=== PATIENT | male | born 1960 | race Caucasian/White ===

== ENCOUNTER 2024-01-23 07:57 | Emergency (ER) | payer OTHER ==
[~2024-01-23] VITALS: Ht 182.9 cm; Wt 83.1 kg
[2024-01-23] MEDS ORDERED: XARE20TA PO (08:10)
[2024-01-23] MEDS ORDERED: ATOR80TA59 PO (08:10)
[2024-01-23] MEDS ORDERED: METO1TAB7 PO (08:10)
[2024-01-23 09:18] LABS: BASO # 0.1 10^3/uL (0.0-0.2); BASO % 0.7 % (0.0-1.0); EOS # 0.1 10^3/uL (0.0-0.5); EOS % 1.1 % (0.0-3.0); HEMATOCRIT 44.7 % (42.0-52.0); HEMOGLOBIN 15.1 g/dl (13.5-17.5); LYMPH % 13.9 % (24.0-44.0); MEAN CORPUSCULAR HEMOGLOBIN 29.5 pg (27.0-33.0); MEAN CORPUSCULAR HGB CONC 33.8 g/dl (32.0-36.5); MEAN CORPUSCULAR VOLUME 87.5 fl (80.0-96.0); MONO # 0.6 10^3/uL (0.0-0.8); MONO % 8.2 % (2.0-8.0); NEUTROPHILS # 5.5 10^3/uL (1.5-8.5); NEUTROPHILS % 75.8 % (36.0-66.0); PLATELET COUNT, AUTOMATED 193 10^3/uL (150-450); RED BLOOD COUNT 5.11 10^6/uL (4.30-6.10); WHITE BLOOD COUNT 7.2 10^3/uL (4.0-10.0)
[2024-01-23] MEDS ORDERED: HOME MED LIST COMPLETE! XX SCH (09:25)
[2024-01-23 09:49] LABS: BLOOD UREA NITROGEN 12 MG/DL (9-23); CARBON DIOXIDE LEVEL 25 MMOL/L (20-31); CHLORIDE LEVEL 105 MMOL/L (98-107); CREATININE FOR GFR 0.74 MG/DL (0.70-1.30); GLOMERULAR FILTRATION RATE > 60.0 (>49); GLUCOSE, FASTING 107 MG/DL (74-106); MAGNESIUM LEVEL 1.6 MG/DL (1.8-2.4); POTASSIUM SERUM 4.1 MMOL/L (3.5-5.1); SODIUM LEVEL 137 MMOL/L (136-145)
[2024-01-23 09:51] LABS: FREE T4 1.17 NG/DL (0.89-1.76)
[2024-01-23 09:52] LABS: THYROID STIMULATING HORMONE 2.606 uIU/ML (0.55-4.78)
[2024-01-23] MEDS: MAG SULF 1GM/100ML (MAG RUN) 1 GM in IV 1 EA IV ONE (11:08)
[2024-01-23] MEDS ORDERED: FUROSEMIDE 40MG/4ML VIAL IV ONE (11:50)
[2024-01-23 12:15] VITALS: BP 123/79; O2SAT 96
[2024-01-23] MEDS ORDERED: SLOWTAB2 PO (12:20)
[2024-01-23 12:30] VITALS: TEMP 98.1
== END 2024-01-23 12:30 | disposition home or self-care (01) ==
LOC: M ED 07:57
DX: I47.29 Other ventricular tachycardia (principal); F41.1 Generalized anxiety disorder; E83.42 Hypomagnesemia; I48.91 Unspecified atrial fibrillation; I25.10 Atherosclerotic heart disease of native coronary artery without angina pectoris; I25.2 Old myocardial infarction; I10 Essential (primary) hypertension; E78.5 Hyperlipidemia, unspecified; Z98.61 Coronary angioplasty status; Z87.891 Personal history of nicotine dependence
CPT/HCPCS: 71045; 80048; 83735; 83880; 84439; 84443; 85025; 87486; 87581; 87633; 87798; 93005; 93041; 94760; 96365; 99285; J3475

== ENCOUNTER 2024-02-06 14:55 | Emergency (ER) | payer OTHER ==
[~2024-02-06] VITALS: Ht 182.9 cm; Wt 80.2 kg
[~2024-02-06 14:55] MED LIST: ATOR80TA59 PO; METO1TAB7 PO; SLOWTAB2 PO; XARE20TA PO
[2024-02-06 14:56] VITALS: TEMP 97.7
[2024-02-06 15:57] LABS: BASO % 0.9 % (0.0-1.0); EOS # 0.1 10^3/uL (0.0-0.5); EOS % 2.3 % (0.0-3.0); HEMATOCRIT 49.2 % (42.0-52.0); HEMOGLOBIN 16.4 g/dl (13.5-17.5); LYMPH # 1.2 10^3/uL (1.5-5.0); LYMPH % 33.7 % (24.0-44.0); MEAN CORPUSCULAR HGB CONC 33.3 g/dl (32.0-36.5); MEAN CORPUSCULAR VOLUME 87.1 fl (80.0-96.0); MONO # 0.7 10^3/uL (0.0-0.8); MONO % 19.2 % (2.0-8.0); NEUTROPHILS # 1.5 10^3/uL (1.5-8.5); NEUTROPHILS % 43.6 % (36.0-66.0); PLATELET COUNT, AUTOMATED 189 10^3/uL (150-450); RED BLOOD COUNT 5.65 10^6/uL (4.30-6.10); WHITE BLOOD COUNT 3.4 10^3/uL (4.0-10.0)
[2024-02-06 16:21] LABS: CK-MB VALUE MASS 1.2 NG/ML (<3.6); CPK CREATINE PHOSPHOKINASE 74 U/L (46-171); MB/CK RELATIVE INDEX 1.62 (< OR =4)
[2024-02-06 16:25] LABS: THYROID STIMULATING HORMONE 2.004 uIU/ML (0.55-4.78)
[2024-02-06 16:41] LABS: ALBUMIN 3.5 G/DL (3.2-5.2); ALKALINE PHOSPHATASE 149 U/L (46-116); ALT/SGPT 29 U/L (7.0-40); AST/SGOT 26 U/L (<34); BILIRUBIN,DIRECT 0.3 MG/DL (<0.4); BILIRUBIN,TOTAL 0.6 MG/DL (0.3-1.2); BLOOD UREA NITROGEN 17 MG/DL (9-23); CALCIUM LEVEL 9.2 MG/DL (8.3-10.6); CARBON DIOXIDE LEVEL 31 MMOL/L (20-31); CHLORIDE LEVEL 105 MMOL/L (98-107); CREATININE FOR GFR 0.81 MG/DL (0.70-1.30); GLOMERULAR FILTRATION RATE > 60.0 (>49); GLUCOSE, FASTING 96 MG/DL (74-106); POTASSIUM SERUM 3.8 MMOL/L (3.5-5.1); SODIUM LEVEL 141 MMOL/L (136-145); TOTAL PROTEIN 6.5 G/DL (5.7-8.2)
[2024-02-06 18:14] LABS: CK-MB VALUE MASS 1.2 NG/ML (<3.6)
[2024-02-06 18:16] LABS: MB/CK RELATIVE INDEX 1.87 (< OR =4)
[2024-02-06 19:06] LABS: CK-MB VALUE MASS 1.7 NG/ML (<3.6)
[2024-02-06 19:09] LABS: MB/CK RELATIVE INDEX 2.88 (< OR =4)
[2024-02-06] MEDS: METOPROLOL SUCC (TopROL XL) 50MG **XL** TAB PO ONE (19:55)
[2024-02-06 20:00] VITALS: BP 161/99; O2SAT 98
[2024-02-06] MEDS ORDERED: METO1TAB33 PO (20:01)
== END 2024-02-06 20:25 | disposition home or self-care (01) ==
LOC: M ED 14:55
DX: B34.8 Other viral infections of unspecified site (principal); I10 Essential (primary) hypertension; I49.1 Atrial premature depolarization; I25.2 Old myocardial infarction; E78.5 Hyperlipidemia, unspecified; Z86.79 Personal history of other diseases of the circulatory system; Z79.02 Long term (current) use of antithrombotics/antiplatelets; Z79.899 Other long term (current) drug therapy

== ENCOUNTER 2024-02-14 08:03 | Emergency (ER) | payer MEDICARE, OTHER ==
[~2024-02-14] VITALS: Ht 182.9 cm; Wt 80.0 kg
[~2024-02-14 08:03] MED LIST changes: +METO1TAB33 PO
[2024-02-14 09:00] LABS: BASO # 0.1 10^3/uL (0.0-0.2); BASO % 0.5 % (0.0-1.0); EOS # 0.1 10^3/uL (0.0-0.5); EOS % 0.7 % (0.0-3.0); HEMATOCRIT 50.1 % (42.0-52.0); HEMOGLOBIN 17.1 g/dl (13.5-17.5); LYMPH # 1.4 10^3/uL (1.5-5.0); LYMPH % 14.2 % (24.0-44.0); MEAN CORPUSCULAR HEMOGLOBIN 29.6 pg (27.0-33.0); MEAN CORPUSCULAR HGB CONC 34.1 g/dl (32.0-36.5); MEAN CORPUSCULAR VOLUME 86.7 fl (80.0-96.0); MONO # 0.6 10^3/uL (0.0-0.8); MONO % 5.8 % (2.0-8.0); NEUTROPHILS # 7.8 10^3/uL (1.5-8.5); NEUTROPHILS % 78.4 % (36.0-66.0); PLATELET COUNT, AUTOMATED 260 10^3/uL (150-450); RED BLOOD COUNT 5.78 10^6/uL (4.30-6.10); WHITE BLOOD COUNT 9.9 10^3/uL (4.0-10.0)
[2024-02-14 09:40] LABS: ALBUMIN 3.2 G/DL (3.2-5.2); ALKALINE PHOSPHATASE 149 U/L (46-116); ALT/SGPT 28 U/L (7.0-40); AST/SGOT 27 U/L (<34); BILIRUBIN,TOTAL 1.3 MG/DL (0.3-1.2); BLOOD UREA NITROGEN 15 MG/DL (9-23); CALCIUM LEVEL 9.8 MG/DL (8.3-10.6); CARBON DIOXIDE LEVEL 24 MMOL/L (20-31); CHLORIDE LEVEL 106 MMOL/L (98-107); GLOMERULAR FILTRATION RATE > 60.0 (>49); GLUCOSE, FASTING 147 MG/DL (74-106); MAGNESIUM LEVEL 1.9 MG/DL (1.8-2.4); POTASSIUM SERUM 3.9 MMOL/L (3.5-5.1); SODIUM LEVEL 136 MMOL/L (136-145); TOTAL PROTEIN 6.5 G/DL (5.7-8.2)
[2024-02-14] MEDS ORDERED: LOSA25TA13 PO (11:36)
[2024-02-14 11:48] VITALS: BP 129/93; O2SAT 97
[2024-02-14 11:57] VITALS: TEMP 97.8
== END 2024-02-14 12:09 | disposition home or self-care (01) ==
LOC: M ED 08:03
DX: I10 Essential (primary) hypertension (principal); R42 Dizziness and giddiness; I48.91 Unspecified atrial fibrillation; Z98.61 Coronary angioplasty status; Z79.01 Long term (current) use of anticoagulants; Z79.899 Other long term (current) drug therapy

== ENCOUNTER → 2024-02-28 | Outpatient (REF) | payer MEDICARE, OTHER ==
[~2024-02-28] MED LIST changes: +LOSA25TA13 PO
[2024-02-28 13:06] LABS: HEMOGLOBIN A1c 5.7 % (4.0-6.0)
[2024-02-28 13:21] LABS: CHOLESTEROL LEVEL 127 MG/DL (<200); CHOLESTEROL RISK RATIO 2.83 (<5); HDL CHOLESTEROL 44.8 MG/DL (>40); IRON (FE) 100 UG/DL (65-175); NON-HDL-C 82.2 MG/DL; PERCENT SATURATION 35.5 % (19.7-50.0); TOTAL IRON BINDING CAPACITY 282 UG/DL (250-425); TRIGLYCERIDES LEVEL 111 MG/DL (<150)
[2024-02-28 13:25] LABS: TOTAL 25(OH) VITAMIN D 32.3 NG/ML (20.0-100.0)
[2024-02-28 13:50] LABS: HIV 1&2 SCREEN NEGATIVE (NEGATIVE)
[2024-02-28 13:58] LABS: HEPATITIS C VIRUS ABY INDEX < 0.02 INDEX (<0.8)
== END ==
LOC: M LAB REF 11:49
PROVIDERS: ATTEND Nurse Practitioner Family
DX: E55.9 Vitamin D deficiency, unspecified (principal); E66.3 Overweight; Z11.9 Encounter for screening for infectious and parasitic diseases, unspecified; R20.8 Other disturbances of skin sensation; Z86.39 Personal history of other endocrine, nutritional and metabolic disease

== ENCOUNTER 2024-03-10 08:16 | Emergency (ER) | payer MEDICARE, OTHER ==
[~2024-03-10] VITALS: Ht 193 cm; Wt 80.6 kg
[2024-03-10 08:16] VITALS: TEMP 97.6
[2024-03-10 09:45] LABS: BASO # 0.1 10^3/uL (0.0-0.2); BASO % 0.7 % (0.0-1.0); EOS # 0.1 10^3/uL (0.0-0.5); HEMATOCRIT 47.8 % (42.0-52.0); HEMOGLOBIN 16.1 g/dl (13.5-17.5); LYMPH # 1.3 10^3/uL (1.5-5.0); LYMPH % 15.9 % (24.0-44.0); MEAN CORPUSCULAR HEMOGLOBIN 29.3 pg (27.0-33.0); MEAN CORPUSCULAR HGB CONC 33.7 g/dl (32.0-36.5); MEAN CORPUSCULAR VOLUME 86.9 fl (80.0-96.0); MONO # 0.6 10^3/uL (0.0-0.8); NEUTROPHILS # 6.1 10^3/uL (1.5-8.5); NEUTROPHILS % 75.2 % (36.0-66.0); PLATELET COUNT, AUTOMATED 196 10^3/uL (150-450); WHITE BLOOD COUNT 8.2 10^3/uL (4.0-10.0)
[2024-03-10 10:06] LABS: ALBUMIN 3.5 G/DL (3.2-5.2); ALKALINE PHOSPHATASE 120 U/L (46-116); ALT/SGPT 80 U/L (7.0-40); AST/SGOT 53 U/L (<34); BILIRUBIN,TOTAL 1.2 MG/DL (0.3-1.2); BLOOD UREA NITROGEN 15 MG/DL (9-23); CALCIUM LEVEL 9.3 MG/DL (8.3-10.6); CARBON DIOXIDE LEVEL 25 MMOL/L (20-31); CHLORIDE LEVEL 106 MMOL/L (98-107); CREATININE FOR GFR 0.82 MG/DL (0.70-1.30); GLOMERULAR FILTRATION RATE > 60.0 (>49); GLUCOSE, FASTING 113 MG/DL (74-106); POTASSIUM SERUM 4.3 MMOL/L (3.5-5.1); SODIUM LEVEL 139 MMOL/L (136-145); TOTAL PROTEIN 6.5 G/DL (5.7-8.2)
[2024-03-10 10:28] LABS: CK-MB VALUE MASS 1.2 NG/ML (<3.6)
[2024-03-10 10:31] LABS: CPK CREATINE PHOSPHOKINASE 67 U/L (46-171); MB/CK RELATIVE INDEX 1.79 (< OR =4)
[2024-03-10 13:39] LABS: CK-MB VALUE MASS 1.6 NG/ML (<3.6)
[2024-03-10 13:41] LABS: MB/CK RELATIVE INDEX 2.66 (< OR =4)
[2024-03-10] MEDS ORDERED: AMOX875T2 PO (14:12)
[2024-03-10 14:16] VITALS: O2SAT 97
[2024-03-10 14:21] VITALS: BP 141/95
== END 2024-03-10 14:36 | disposition home or self-care (01) ==
LOC: M ED 08:16
DX: I10 Essential (primary) hypertension (principal); I48.91 Unspecified atrial fibrillation; I49.3 Ventricular premature depolarization; H66.90 Otitis media, unspecified, unspecified ear; Z98.61 Coronary angioplasty status; I50.9 Heart failure, unspecified; I25.2 Old myocardial infarction; E78.00 Pure hypercholesterolemia, unspecified; Z79.02 Long term (current) use of antithrombotics/antiplatelets; Z79.899 Other long term (current) drug therapy

== ENCOUNTER → 2024-03-30 | Outpatient (REF) | payer MEDICARE, OTHER ==
[~2024-03-30] MED LIST changes: +AMOX875T2 PO
[2024-03-30 17:27] LABS: ALBUMIN 3.5 G/DL (3.2-5.2); BILIRUBIN,DIRECT 0.5 MG/DL (<0.4); BILIRUBIN,TOTAL 1.4 MG/DL (0.3-1.2); PERCENT SATURATION 48.2 % (19.7-50.0); TOTAL PROTEIN 6.1 G/DL (5.7-8.2)
== END ==
LOC: M LAB REF 16:43
PROVIDERS: ATTEND Nurse Practitioner Family
DX: R74.8 Abnormal levels of other serum enzymes (principal); R20.8 Other disturbances of skin sensation

== ENCOUNTER 2024-04-24 22:23 | Emergency (ER) | payer MEDICARE, OTHER ==
[~2024-04-24] VITALS: Ht 182.9 cm; Wt 76.5 kg
[2024-04-24 22:24] VITALS: BP 174/90; TEMP 98.7; O2SAT 97
[2024-04-24] MEDS ORDERED: TAMS1CAP17 PO (22:49)
[2024-04-24] MEDS ORDERED: TREL1AER PO (22:49)
== END 2024-04-25 02:34 | disposition home or self-care (01) ==
LOC: M ED 22:23
DX: R33.9 Retention of urine, unspecified (principal); N40.1 Benign prostatic hyperplasia with lower urinary tract symptoms; F17.200 Nicotine dependence, unspecified, uncomplicated; Z79.01 Long term (current) use of anticoagulants; Z79.899 Other long term (current) drug therapy

== ENCOUNTER 2024-04-27 07:22 | Emergency (ER) | payer MEDICARE, OTHER ==
[~2024-04-27] VITALS: Ht 182.9 cm; Wt 77.6 kg
[~2024-04-27 07:22] MED LIST changes: +TAMS1CAP17 PO; +TREL1AER PO
[2024-04-27 08:23] LABS: HEMATOCRIT 43.6 % (42.0-52.0); HEMOGLOBIN 14.8 g/dl (13.5-17.5); MEAN CORPUSCULAR HEMOGLOBIN 30.2 pg (27.0-33.0); MEAN CORPUSCULAR HGB CONC 33.9 g/dl (32.0-36.5); PLATELET COUNT, AUTOMATED 195 10^3/uL (150-450); WHITE BLOOD COUNT 8.1 10^3/uL (4.0-10.0)
[2024-04-27 08:50] LABS: BLOOD UREA NITROGEN 19 MG/DL (9-23); CALCIUM LEVEL 9.3 MG/DL (8.3-10.6); CARBON DIOXIDE LEVEL 25 MMOL/L (20-31); CHLORIDE LEVEL 108 MMOL/L (98-107); CREATININE FOR GFR 0.81 MG/DL (0.70-1.30); GLOMERULAR FILTRATION RATE > 60.0 (>49); GLUCOSE, FASTING 111 MG/DL (74-106); POTASSIUM SERUM 3.8 MMOL/L (3.5-5.1); SODIUM LEVEL 138 MMOL/L (136-145)
[2024-04-27 09:44] LABS: INR 1.26; PROTHROMBIN TIME 15.4 SECONDS (12.5-14.5)
[2024-04-27 11:32] VITALS: BP 133/91; TEMP 97.5; O2SAT 100
== END 2024-04-27 11:36 | disposition home or self-care (01) ==
LOC: M ED 07:22
DX: R31.9 Hematuria, unspecified (principal); Z96.0 Presence of urogenital implants; I48.91 Unspecified atrial fibrillation; I25.10 Atherosclerotic heart disease of native coronary artery without angina pectoris; I25.2 Old myocardial infarction; Z98.61 Coronary angioplasty status; I10 Essential (primary) hypertension; F17.200 Nicotine dependence, unspecified, uncomplicated; Z79.01 Long term (current) use of anticoagulants; Z79.899 Other long term (current) drug therapy

== ENCOUNTER 2024-05-02 17:01 | Emergency (ER) | payer MEDICARE, OTHER ==
[~2024-05-02] VITALS: Ht 182.9 cm; Wt 77.4 kg
[2024-05-02 20:32] VITALS: BP 129/77; TEMP 98.2; O2SAT 97
== END 2024-05-02 21:03 | disposition home or self-care (01) ==
LOC: M ED 17:01
DX: N40.1 Benign prostatic hyperplasia with lower urinary tract symptoms (principal); R33.9 Retention of urine, unspecified; Z96.0 Presence of urogenital implants; I25.10 Atherosclerotic heart disease of native coronary artery without angina pectoris; I10 Essential (primary) hypertension; J44.9 Chronic obstructive pulmonary disease, unspecified; Z79.01 Long term (current) use of anticoagulants; Z79.899 Other long term (current) drug therapy

== ENCOUNTER → 2024-05-11 | Outpatient (REF) | payer MEDICARE, MEDICAID | LOC: M LAB REF 17:30 | PROVIDERS: ATTEND Nurse Practitioner Family | DX: Z12.5 Encounter for screening for malignant neoplasm of prostate (principal) ==

== ENCOUNTER 2024-06-02 18:32 | Emergency (ER) | payer MEDICARE, MEDICAID ==
[~2024-06-02] VITALS: Ht 182.9 cm; Wt 78.5 kg
[2024-06-02] MEDS ORDERED: ALBU8.5H (18:41)
[2024-06-02 19:19] LABS: BASO # 0.1 10^3/uL (0.0-0.2); EOS # 0.2 10^3/uL (0.0-0.5); EOS % 2.9 % (0.0-3.0); HEMATOCRIT 42.2 % (42.0-52.0); HEMOGLOBIN 14.4 g/dl (13.5-17.5); LYMPH # 1.2 10^3/uL (1.5-5.0); LYMPH % 15.2 % (24.0-44.0); MEAN CORPUSCULAR HEMOGLOBIN 31.4 pg (27.0-33.0); MEAN CORPUSCULAR HGB CONC 34.1 g/dl (32.0-36.5); MEAN CORPUSCULAR VOLUME 91.9 fl (80.0-96.0); MONO # 0.7 10^3/uL (0.0-0.8); MONO % 8.9 % (2.0-8.0); NEUTROPHILS # 5.8 10^3/uL (1.5-8.5); NEUTROPHILS % 71.6 % (36.0-66.0); PLATELET COUNT, AUTOMATED 258 10^3/uL (150-450); RED BLOOD COUNT 4.59 10^6/uL (4.30-6.10)
[2024-06-02 19:59] LABS: CK-MB VALUE MASS < 1.0 NG/ML (<3.6)
[2024-06-02 20:02] LABS: BLOOD UREA NITROGEN 14 MG/DL (9-23); CARBON DIOXIDE LEVEL 27 MMOL/L (20-31); CHLORIDE LEVEL 105 MMOL/L (98-107); CPK CREATINE PHOSPHOKINASE 86 U/L (46-171); CREATININE FOR GFR 0.88 MG/DL (0.70-1.30); GLOMERULAR FILTRATION RATE > 60.0 (>49); GLUCOSE, FASTING 99 MG/DL (74-106); MB/CK RELATIVE INDEX 1.16 (< OR =4); POTASSIUM SERUM 4.1 MMOL/L (3.5-5.1); SODIUM LEVEL 138 MMOL/L (136-145)
[2024-06-02 21:00] VITALS: TEMP 97.8
[2024-06-02] MEDS ORDERED: ISOVUE-370 76% 100ML VIAL As Ordered ONE (21:45)
[2024-06-02] MEDS: ASPIRIN 81MG CHEW TABLET PO ONE (22:10)
[2024-06-02 22:59] LABS: MB/CK RELATIVE INDEX 1.19 (< OR =4)
[2024-06-02] MEDS: LIDOCAINE 2% 5ML JELLY UROJET TOP ONE (23:57)
[2024-06-03 00:11] VITALS: BP 169/58; O2SAT 98
== END 2024-06-03 00:18 | disposition home or self-care (01) ==
LOC: M ED 18:32
DX: R33.9 Retention of urine, unspecified (principal); R07.9 Chest pain, unspecified; I48.91 Unspecified atrial fibrillation; I25.2 Old myocardial infarction; I10 Essential (primary) hypertension; J44.9 Chronic obstructive pulmonary disease, unspecified; N40.1 Benign prostatic hyperplasia with lower urinary tract symptoms; Z87.891 Personal history of nicotine dependence; Z79.01 Long term (current) use of anticoagulants; Z79.899 Other long term (current) drug therapy
CPT/HCPCS: 51702; 71045; 71275; 80048; 82550; 82553; 84484; 85025; 93005; 93041; 94760; 99285; Q9967

== ENCOUNTER 2024-06-21 08:40 | Observation (INO) | payer MEDICARE, MEDICAID ==
[~2024-06-21] VITALS: Ht 188 cm; Wt 78.3 kg
[~2024-06-21 08:40] MED LIST changes: +ALBU8.5H INH
[2024-06-21] MEDS: TAMSULOSIN 0.4 MG CAP PO SCH (09:00)
[2024-06-21] MEDS ORDERED: LOSA50TA28 PO (09:04)
[2024-06-21] MEDS ORDERED: NITROGLYCERIN 0.3MG SUBL TAB SL PRN (09:20)
[2024-06-21 09:21] LABS: BASO # 0.1 10^3/uL (0.0-0.2); BASO % 1.1 % (0.0-1.0); EOS # 0.2 10^3/uL (0.0-0.5); EOS % 2.7 % (0.0-3.0); HEMATOCRIT 43.8 % (42.0-52.0); HEMOGLOBIN 14.7 g/dl (13.5-17.5); LYMPH # 1.1 10^3/uL (1.5-5.0); LYMPH % 14.8 % (24.0-44.0); MEAN CORPUSCULAR HEMOGLOBIN 30.9 pg (27.0-33.0); MEAN CORPUSCULAR HGB CONC 33.6 g/dl (32.0-36.5); MONO # 0.6 10^3/uL (0.0-0.8); NEUTROPHILS # 5.3 10^3/uL (1.5-8.5); PLATELET COUNT, AUTOMATED 249 10^3/uL (150-450); RED BLOOD COUNT 4.76 10^6/uL (4.30-6.10); WHITE BLOOD COUNT 7.3 10^3/uL (4.0-10.0)
[2024-06-21] MEDS: ASPIRIN 81MG CHEW TABLET PO ONE (09:25)
[2024-06-21 09:43] LABS: LIPASE 32 U/L (12-53)
[2024-06-21 09:46] LABS: ALBUMIN 3.4 G/DL (3.2-5.2); ALKALINE PHOSPHATASE 159 U/L (46-116); ALT/SGPT 25 U/L (7.0-40); AST/SGOT 20 U/L (<34); BILIRUBIN,DIRECT 0.4 MG/DL (<0.4); BLOOD UREA NITROGEN 15 MG/DL (9-23); CARBON DIOXIDE LEVEL 28 MMOL/L (20-31); CHLORIDE LEVEL 105 MMOL/L (98-107); CK-MB VALUE MASS < 1.0 NG/ML (<3.6); CREATININE FOR GFR 0.93 MG/DL (0.70-1.30); GLOMERULAR FILTRATION RATE > 60.0 (>49); GLUCOSE, FASTING 108 MG/DL (74-106); MAGNESIUM LEVEL 1.9 MG/DL (1.8-2.4); POTASSIUM SERUM 4.3 MMOL/L (3.5-5.1); SODIUM LEVEL 136 MMOL/L (136-145); TOTAL PROTEIN 6.7 G/DL (5.7-8.2)
[2024-06-21 09:47] LABS: CPK CREATINE PHOSPHOKINASE 72 U/L (46-171); FREE T4 1.21 NG/DL (0.89-1.76); MB/CK RELATIVE INDEX 1.38 (< OR =4)
[2024-06-21 10:38] LABS: CK-MB VALUE MASS < 1.0 NG/ML (<3.6)
[2024-06-21 10:40] LABS: CPK CREATINE PHOSPHOKINASE 64 U/L (46-171); MB/CK RELATIVE INDEX 1.56 (< OR =4)
[2024-06-21] MEDS ORDERED: HOME MED LIST COMPLETE! XX SCH (12:45)
[2024-06-21] MEDS ORDERED: IPRATROPIUM 0.02% SOLN 0.5MG 2.5ML NEB INH PRN (14:05)
[2024-06-21] MEDS ORDERED: NITROGLYCERIN 0.4MG SUBL TABLET SL PRN (14:05)
[2024-06-21] MEDS ORDERED: LEVALBUTEROL 1.25MG 0.5ML CONCENTRATE NEB INH PRN ×2 (14:05→15:33)
[2024-06-21] MEDS ORDERED: ALBUTEROL 90 MCG/ACT 8GM HFA INHALER INH PRN (14:05)
[2024-06-21] MEDS ORDERED: MAALOX 30 ML SUSP *UDC PO PRN (14:05)
[2024-06-21] MEDS ORDERED: ACETAMINOPHEN TAB 650MG DOSE (2X325MG) PO PRN (14:05)
[2024-06-21 17:12] VITALS: BP 138/91; TEMP 98.5; O2SAT 99
[2024-06-21] MEDS: RIVAROXABAN 20MG TAB (XARELTO) PO SCH (17:17)
[2024-06-21 19:59] VITALS: BP 119/77; TEMP 97.1; O2SAT 96
[2024-06-21] MEDS: DOCUSATE SODIUM 100MG CAPSULE PO SCH (20:03)
[2024-06-21] MEDS: METOPROLOL SUCC (TopROL XL) 50MG **XL** TAB PO SCH (20:03)
[2024-06-22] VITALS: BP 106/73; TEMP 97.3; O2SAT 96
[2024-06-22 06:17] LABS: HEMATOCRIT 40.9 % (42.0-52.0); HEMOGLOBIN 13.5 g/dl (13.5-17.5); MEAN CORPUSCULAR HEMOGLOBIN 30.1 pg (27.0-33.0); MEAN CORPUSCULAR VOLUME 91.1 fl (80.0-96.0); PLATELET COUNT, AUTOMATED 246 10^3/uL (150-450); RED BLOOD COUNT 4.49 10^6/uL (4.30-6.10); WHITE BLOOD COUNT 7.1 10^3/uL (4.0-10.0)
[2024-06-22 06:49] LABS: ALBUMIN 3.2 G/DL (3.2-5.2); ALKALINE PHOSPHATASE 150 U/L (46-116); ALT/SGPT 19 U/L (7.0-40); AST/SGOT 17 U/L (<34); BLOOD UREA NITROGEN 17 MG/DL (9-23); CALCIUM LEVEL 9.2 MG/DL (8.3-10.6); CARBON DIOXIDE LEVEL 27 MMOL/L (20-31); CHLORIDE LEVEL 106 MMOL/L (98-107); CHOLESTEROL LEVEL 124 MG/DL (<200); CREATININE FOR GFR 0.95 MG/DL (0.70-1.30); GLOMERULAR FILTRATION RATE > 60.0 (>49); GLUCOSE, FASTING 99 MG/DL (74-106); HDL CHOLESTEROL 35.4 MG/DL (>40); LDL CHOLESTEROL 76.2 MG/DL (<100); MAGNESIUM LEVEL 1.8 MG/DL (1.8-2.4); NON-HDL-C 88.6 MG/DL; POTASSIUM SERUM 4.3 MMOL/L (3.5-5.1); SODIUM LEVEL 137 MMOL/L (136-145); TOTAL PROTEIN 6.3 G/DL (5.7-8.2); TRIGLYCERIDES LEVEL 62 MG/DL (<150)
[2024-06-22 07:39] VITALS: BP 149/87; TEMP 97.2; O2SAT 96
[2024-06-22] MEDS: ATORVASTATIN 20 MG TAB PO SCH (08:50)
[2024-06-22 08:51] VITALS: BP 149/87
[2024-06-22] MEDS: LOSARTAN 50MG TABLET PO SCH (08:51)
[2024-06-22] MEDS: ISOSORBIDE MON. (IMDUR) 60MG XR TAB PO SCH (08:51)
[2024-06-22] MEDS ORDERED: ASPIRIN 81MG CHEW TABLET PO PRN (09:00)
[2024-06-22 11:34] VITALS: BP 84/58; TEMP 97.8; O2SAT 95
[2024-06-22 11:50] VITALS: BP 120/84
[2024-06-22] MEDS ORDERED: ISOS1TAB36 PO (12:20)
[2024-06-22] MEDS ORDERED: ASPI81CH8 PO (12:20)
[2024-06-22] MEDS ORDERED: LOSA50TA28 PO (12:20)
[2024-06-22] MEDS ORDERED: NITR4TASL SL (12:20)
== END 2024-06-22 13:57 | disposition home or self-care (01) ==
LOC: M ED 08:40 → M ED INP 14:05 → M PCU 16:57
PROVIDERS: ADMIT Family Medicine; ATTEND Family Medicine
DX: I20.89 Other forms of angina pectoris (principal); I48.91 Unspecified atrial fibrillation; N40.0 Benign prostatic hyperplasia without lower urinary tract symptoms; J44.9 Chronic obstructive pulmonary disease, unspecified; I10 Essential (primary) hypertension; E78.5 Hyperlipidemia, unspecified; Z79.899 Other long term (current) drug therapy; Z79.82 Long term (current) use of aspirin
CPT/HCPCS: 36415; 71045; 80048; 80053; 80061; 80076; 82550; 82553; 83690; 83735; 83880; 84439; 84443; 84484; 85025; 85027; 93005; 93041; 94760; 99285; G0378

== ENCOUNTER → 2024-06-26 | Outpatient (REF) | payer MEDICARE, MEDICAID ==
[~2024-06-26] MED LIST changes: +ASPI81CH8 PO; +ISOS1TAB36 PO; +LOSA50TA28 PO; +NITR4TASL SL
== END ==
LOC: M LAB REF 17:22
PROVIDERS: ATTEND Nurse Practitioner Family
DX: R97.20 Elevated prostate specific antigen [PSA] (principal)

== ENCOUNTER 2024-07-10 08:23 | Emergency (ER) | payer MEDICARE, MEDICAID ==
[~2024-07-10] VITALS: Ht 162.6 cm; Wt 76.7 kg
[2024-07-10 11:35] VITALS: BP 107/72; TEMP 97.7; O2SAT 97
== END 2024-07-10 11:44 | disposition home or self-care (01) ==
LOC: M ED 08:23
DX: K43.9 Ventral hernia without obstruction or gangrene (principal); K42.0 Umbilical hernia with obstruction, without gangrene; K40.30 Unilateral inguinal hernia, with obstruction, without gangrene, not specified as recurrent; K76.89 Other specified diseases of liver; N40.0 Benign prostatic hyperplasia without lower urinary tract symptoms; I48.91 Unspecified atrial fibrillation; I25.10 Atherosclerotic heart disease of native coronary artery without angina pectoris; I10 Essential (primary) hypertension; Z79.01 Long term (current) use of anticoagulants; Z79.899 Other long term (current) drug therapy

== ENCOUNTER → 2024-07-21 | Outpatient (REF) | payer MEDICARE, MEDICAID | LOC: M SMT PRO 12:25 | PROVIDERS: ATTEND Urology | DX: R97.20 Elevated prostate specific antigen [PSA] (principal); Z79.01 Long term (current) use of anticoagulants; Z79.51 Long term (current) use of inhaled steroids; Z79.899 Other long term (current) drug therapy; Z87.891 Personal history of nicotine dependence ==

== ENCOUNTER → 2024-08-14 | Outpatient (REF) | payer MEDICARE, MEDICAID ==
[2024-08-14 13:59] LABS: APPEARANCE, URINE TURBID (CLEAR); BACTERIA, URINE AUTO 1+ (NEGATIVE); BILIRUBIN, URINE AUTO NEGATIVE (NEGATIVE); BLOOD, URINE BLOOD 3+ (NEGATIVE); COLOR, URINE YELLOW (YELLOW); GLUCOSE, URINE (UA) AUTO 1+ mg/dL (NEGATIVE); KETONE, URINE AUTO NEGATIVE (NEGATIVE); LEUKOCYTE ESTERASE, URINE AUTO 3+ (NEGATIVE); MUCUS, URINE MODERATE (NEGATIVE); NITRITE, URINE AUTO NEGATIVE (NEGATIVE); PROTEIN, URINE AUTO 2+ mg/dL (NEGATIVE); RBC, URINE AUTO TNTC /HPF (0-3); SPECIFIC GRAVITY URINE AUTO 1.021 (1.002-1.035); SQUAMOUS EPITHELIAL CELL UR AU 0 /HPF (0-6); UROBILINOGEN, URINE AUTO 0.2 mg/dL (0.0-2.0); WBC, URINE AUTO TNTC /HPF (0-3)
== END ==
LOC: M SMT 12:34
PROVIDERS: ATTEND Urology
DX: N40.1 Benign prostatic hyperplasia with lower urinary tract symptoms (principal)

== ENCOUNTER → 2024-09-02 | Outpatient (CLI) | payer MEDICARE, MEDICAID ==
[2024-09-02 13:15] LABS: HEMATOCRIT 42.2 % (42.0-52.0); MEAN CORPUSCULAR HEMOGLOBIN 30.4 pg (27.0-33.0); MEAN CORPUSCULAR HGB CONC 33.2 g/dl (32.0-36.5); MEAN CORPUSCULAR VOLUME 91.7 fl (80.0-96.0); PLATELET COUNT, AUTOMATED 210 10^3/uL (150-450); WHITE BLOOD COUNT 7.3 10^3/uL (4.0-10.0)
[2024-09-02 13:58] LABS: BLOOD UREA NITROGEN 17 MG/DL (9-23); CALCIUM LEVEL 9.4 MG/DL (8.3-10.6); CARBON DIOXIDE LEVEL 29 MMOL/L (20-31); CHLORIDE LEVEL 105 MMOL/L (98-107); CREATININE FOR GFR 0.84 MG/DL (0.70-1.30); GLOMERULAR FILTRATION RATE > 60.0 (>49); GLUCOSE, FASTING 85 MG/DL (74-106); POTASSIUM SERUM 4.6 MMOL/L (3.5-5.1); SODIUM LEVEL 140 MMOL/L (136-145)
[2024-09-02 17:27] LABS: APPEARANCE, URINE HAZY (CLEAR); BACTERIA, URINE AUTO 1+ (NEGATIVE); BILIRUBIN, URINE AUTO NEGATIVE (NEGATIVE); BLOOD, URINE BLOOD 3+ (NEGATIVE); COLOR, URINE YELLOW (YELLOW); GLUCOSE, URINE (UA) AUTO 1+ mg/dL (NEGATIVE); KETONE, URINE AUTO NEGATIVE (NEGATIVE); LEUKOCYTE ESTERASE, URINE AUTO 3+ (NEGATIVE); MUCUS, URINE SMALL (NEGATIVE); NITRITE, URINE AUTO NEGATIVE (NEGATIVE); PROTEIN, URINE AUTO NEGATIVE (NEGATIVE); RBC, URINE AUTO 23 /HPF (0-3); SPECIFIC GRAVITY URINE AUTO 1.012 (1.002-1.035); SQUAMOUS EPITHELIAL CELL UR AU 0 /HPF (0-6); UROBILINOGEN, URINE AUTO 0.2 mg/dL (0.0-2.0); WBC, URINE AUTO TNTC /HPF (0-3)
== END ==
LOC: M RAD 11:53
PROVIDERS: ATTEND Nurse Practitioner Family
DX: Z01.818 Encounter for other preprocedural examination (principal)

== ENCOUNTER 2024-09-09 10:32 | Day surgery (SDC) | payer MEDICARE, MEDICAID ==
[~2024-09-09] VITALS: Ht 185.4 cm; Wt 78.8 kg
[~2024-09-09 10:32] MED LIST changes: +BACTDSTA PO; +DULO1CAP4 PO; +LEXA5TAB13 PO
[2024-09-09] MEDS ORDERED: propofoL 200 MG/20 ML VIAL As Ordered ONE (11:05)
[2024-09-09] MEDS ORDERED: LIDOCAINE 2% 100MG/5ML SDV (FOR ANES.) As Ordered ONE (11:05)
[2024-09-09] MEDS ORDERED: ONDANSETRON 4MG 2ML VIAL As Ordered ONE (11:05)
[2024-09-09] MEDS ORDERED: fentaNYL 100 MCG/2 ML INJECTION As Ordered ONE (11:09)
[2024-09-09] MEDS ORDERED: MIDAZOLAM INJ 2MG/2ML VIAL As Ordered ONE (11:09)
[2024-09-09] MEDS ORDERED: FLUC150T9 PO (11:52)
[2024-09-09] MEDS ORDERED: NS 250 ML IV SCH ×2 (11:55→16:10)
[2024-09-09] MEDS ORDERED: ETOMIDATE INJ 20MG/10ML VIAL As Ordered ONE (12:46)
[2024-09-09] MEDS: ceFAZolin SOD 2 GM in IV 1 EA IV ONE (13:00)
[2024-09-09] MEDS ORDERED: ACETAMINOPHEN 1000MG 100ML IV BAG As Ordered ONE (13:03)
[2024-09-09] MEDS ORDERED: PHENYLephrine 500MCG 5ML (100MCG/ML) SYRINGE As Ordered ONE (13:09)
[2024-09-09] MEDS ORDERED: PHENYLEPHRINE 10MG/ML 1ML VIAL As Ordered ONE (14:00)
[2024-09-09] MEDS ORDERED: FUROSEMIDE 100MG/10ML VIAL As Ordered ONE (15:51)
[2024-09-09] MEDS ORDERED: ONDANSETRON 4MG 2ML VIAL IV PRN (16:10)
[2024-09-09] MEDS ORDERED: fentaNYL 100 MCG/2 ML INJECTION IV PRN (16:10)
[2024-09-09] MEDS ORDERED: oxyCODONE 5MG TAB PO PRN (16:10)
[2024-09-09] MEDS ORDERED: HYDROMORPHONE HCL 0.5 MG/ 0.5 ML SYRINGE IV PRN (16:10)
[2024-09-09] MEDS ORDERED: ACETAMINOPHEN TAB 650MG DOSE (2X325MG) PO PRN (16:40)
[2024-09-09] MEDS: oxyBUTYnin 5 MG TAB PO PRN (17:10)
[2024-09-09 17:53] VITALS: BP 128/72; TEMP 98.1; O2SAT 96
== END 2024-09-09 18:07 | disposition home or self-care (01) ==
LOC: M SDC 10:32
PROVIDERS: ATTEND Urology
DX: N40.1 Benign prostatic hyperplasia with lower urinary tract symptoms (principal); R33.9 Retention of urine, unspecified; I48.91 Unspecified atrial fibrillation; I10 Essential (primary) hypertension; I25.2 Old myocardial infarction; E78.5 Hyperlipidemia, unspecified; J44.9 Chronic obstructive pulmonary disease, unspecified; N40.0 Benign prostatic hyperplasia without lower urinary tract symptoms; Z79.51 Long term (current) use of inhaled steroids; Z79.899 Other long term (current) drug therapy; Z79.82 Long term (current) use of aspirin; Z79.01 Long term (current) use of anticoagulants
CPT/HCPCS: 52601; J0131; J0690; J1100; J1940; J2250; J2371; J2405; J3010

== ENCOUNTER → 2024-11-10 | Outpatient (REF) | payer MEDICARE, MEDICAID ==
[~2024-11-10] MED LIST changes: +FLUC150T9 PO
[2024-11-10 18:52] LABS: ALBUMIN 3.5 G/DL (3.2-5.2); BILIRUBIN,DIRECT 0.3 MG/DL (<0.4); BILIRUBIN,TOTAL 0.9 MG/DL (0.3-1.2); TOTAL PROTEIN 6.9 G/DL (5.7-8.2)
== END ==
LOC: M LAB REF 16:23
PROVIDERS: ATTEND Nurse Practitioner Family
DX: R74.8 Abnormal levels of other serum enzymes (principal)

== ENCOUNTER 2024-11-30 07:14 | Emergency (ER) | payer MEDICARE, MEDICAID ==
[~2024-11-30] VITALS: Ht 182.9 cm; Wt 82.5 kg
[2024-11-30 08:00] LABS: BASO # 0.1 10^3/uL (0.0-0.2); BASO % 0.6 % (0.0-1.0); EOS % 0.4 % (0.0-3.0); HEMATOCRIT 45.7 % (42.0-52.0); LYMPH # 1.5 10^3/uL (1.5-5.0); LYMPH % 15.5 % (24.0-44.0); MEAN CORPUSCULAR HEMOGLOBIN 28.6 pg (27.0-33.0); MEAN CORPUSCULAR HGB CONC 32.8 g/dl (32.0-36.5); MEAN CORPUSCULAR VOLUME 87.2 fl (80.0-96.0); MONO # 0.6 10^3/uL (0.0-0.8); MONO % 6.6 % (2.0-8.0); NEUTROPHILS # 7.2 10^3/uL (1.5-8.5); NEUTROPHILS % 76.6 % (36.0-66.0); PLATELET COUNT, AUTOMATED 239 10^3/uL (150-450); RED BLOOD COUNT 5.24 10^6/uL (4.30-6.10); WHITE BLOOD COUNT 9.4 10^3/uL (4.0-10.0)
[2024-11-30 08:13] LABS: INR 1.68
[2024-11-30 08:28] LABS: LIPASE 41 U/L (12-53)
[2024-11-30 08:30] LABS: ALBUMIN 3.5 G/DL (3.2-5.2); ALKALINE PHOSPHATASE 114 U/L (40-129); ALT/SGPT 33 U/L (7.0-40); AST/SGOT 27 U/L (<34); BILIRUBIN,DIRECT 0.5 MG/DL (<0.4); BILIRUBIN,TOTAL 1.5 MG/DL (0.3-1.2); BLOOD UREA NITROGEN 21 MG/DL (9-23); CALCIUM LEVEL 8.8 MG/DL (8.3-10.6); CARBON DIOXIDE LEVEL 26 MMOL/L (20-31); CHLORIDE LEVEL 105 MMOL/L (98-107); CREATININE FOR GFR 1.04 MG/DL (0.70-1.30); GLOMERULAR FILTRATION RATE > 60.0 (>49); GLUCOSE, FASTING 103 MG/DL (74-106); POTASSIUM SERUM 4.4 MMOL/L (3.5-5.1); SODIUM LEVEL 138 MMOL/L (136-145); TOTAL PROTEIN 6.8 G/DL (5.7-8.2)
[2024-11-30 08:32] LABS: FREE T4 1.11 NG/DL (0.89-1.76); THYROID STIMULATING HORMONE 1.223 uIU/ML (0.55-4.78)
[2024-11-30 10:01] LABS: APPEARANCE, URINE CLOUDY (CLEAR); BACTERIA, URINE AUTO 1+ (NEGATIVE); BILIRUBIN, URINE AUTO NEGATIVE (NEGATIVE); BLOOD, URINE BLOOD 3+ (NEGATIVE); COLOR, URINE YELLOW (YELLOW); GLUCOSE, URINE (UA) AUTO NEGATIVE (NEGATIVE); KETONE, URINE AUTO TRACE mg/dL (NEGATIVE); LEUKOCYTE ESTERASE, URINE AUTO 3+ (NEGATIVE); MUCUS, URINE SMALL (NEGATIVE); NITRITE, URINE AUTO NEGATIVE (NEGATIVE); PROTEIN, URINE AUTO 2+ mg/dL (NEGATIVE); RBC, URINE AUTO 146 /HPF (0-3); SPECIFIC GRAVITY URINE AUTO 1.019 (1.002-1.035); SQUAMOUS EPITHELIAL CELL UR AU 0 /HPF (0-6); UROBILINOGEN, URINE AUTO 0.2 mg/dL (0.0-2.0); WBC, URINE AUTO TNTC /HPF (0-3)
[2024-11-30 11:57] VITALS: BP 116/81; TEMP 98.5; O2SAT 96
== END 2024-11-30 12:00 | disposition home or self-care (01) ==
LOC: M ED 07:14
DX: I11.0 Hypertensive heart disease with heart failure (principal); I50.9 Heart failure, unspecified; I25.2 Old myocardial infarction; I48.91 Unspecified atrial fibrillation; I25.10 Atherosclerotic heart disease of native coronary artery without angina pectoris; J44.9 Chronic obstructive pulmonary disease, unspecified; Z79.899 Other long term (current) drug therapy

== ENCOUNTER → 2025-01-26 | Outpatient (CLI) | payer MEDICARE, MEDICAID | LOC: M LAB 09:20 | PROVIDERS: ATTEND Nurse Practitioner Family | DX: R97.20 Elevated prostate specific antigen [PSA] (principal) ==

== ENCOUNTER → 2025-06-22 | Outpatient (CLI) | payer MEDICARE ==
[~2025-06-22] MED LIST changes: +SLOW1TAB3 PO; -SLOWTAB2 PO
== END ==
LOC: M RAD 10:35
PROVIDERS: ATTEND Internal Medicine Pulmonary Disease
DX: Z12.2 Encounter for screening for malignant neoplasm of respiratory organs (principal); Z87.891 Personal history of nicotine dependence; I25.10 Atherosclerotic heart disease of native coronary artery without angina pectoris; J43.9 Emphysema, unspecified